=== PATIENT | male | born 1990 | race African-American/Black ===

== ENCOUNTER 2020-12-01 22:07 | Emergency (ER) | payer OTHER, SELFPAY ==
--- NOTE | ~2020-12-01 | XR_ITS ---
EXAMINATION: XR chest 2V DATE: 12/02/2020 01:47 INDICATION: Left sternal chest pain TECHNIQUE: PA and lateral views of the chest were obtained. COMPARISON: None FINDINGS: The lungs are clear with no focal airspace opacities, pulmonary edema, pleural effusion or pneumothor ax. The cardiomediastinal silhouette is normal. Minimal S-shaped curvature of the thoracic spine. IMPRESSION: 1. No acute cardiopulmonary disease. Reviewed, dictated and finalized at location A.
[2020-12-01 22:32] VITALS: BP 148/86; PULSE 92; RESP 16; TEMP 36.9; O2SAT 99
--- NOTE | 2020-12-02 01:19 | ED.GENADULT ---
HPI - General Adult General Chief complaint: Skin/Abscess/Foreign Body Stated complaint: red rash, itching - SCABIES? Time Seen by Provider: 12/02/20 01:18 Source: patient Mode of arrival: ambulatory Limitations: no limitations History of Present Illness HPI narrative: Patient is a 30-year-old male with a history of sleep apnea who presents for evaluation of left-sided chest pain as well as itching rash and hives which has resolved at the time of assessment. Patient states that over the past week he intermittently has been experiencing chest pain over the left side of his chest. The last time that the pain occurred was around 8 PM and has lasted over the past 4 hours. Patient without associated palpitations, jaw pain, neck pain, shoulder pain, back pain. No ripping or tearing sensation to the flanks. No associated shortness of breath or diaphoresis. Patient states that today he has had hives to his thorax, abdomen, upper extremities which have been itching him. He did take a Benadryl and Pepcid which made the rash resolved while he was in the waiting room. He denies any difficulty breathing or speaking. No wheezing, diarrhea. No history of anaphylaxis or severe allergic reactions in the past. No recent soaps, lotions or detergents. Patient recently moved to this area from [place], does have a house But denies other new pets or exposures. Patient states he believes all of his symptoms started after getting his haircut. States he initially had a rash near his hairline that is since resolved. No vesicles or blisters. Related Data Allergies Allergy/AdvReac Type Severity Reaction Status Date / Time No Known Allergies Allergy Unverified 07/21/11 20:33 Review of Systems Review of Systems: CONSTITUTIONAL: Denies fever, chills, or sweats. EYES: Denies visual changes, redness, or discharge. ENT: Denies rhinorrhea, congestion, sore throat, or otalgia. CARDIOVASCULAR: Reports chest pain without palpitations or edema RESPIRATORY: Denies cough or dyspnea. GASTROINTESTINAL: Denies abdominal pain, nausea, vomiting, or diarrhea. GENITOURINARY: Denies dysuria or hematuria. SKIN: Reports rash and itching that has since resolved MUSCULOSKELETAL: Denies back pain, joint pain, or myalgia. NEUROLOGIC: Denies headache, numbness, or weakness. [facility] Social History Social History (Updated 12/02/20 @ 01:47 by Clementine Avendano MD) Smoking status: Never smoker Alcohol intake: never Substance use: never Living arrangements: with friend(s) Gender identity (if verbalized by the patient): Male Exam Narrative: GENERAL: Awake, alert, conversant HEAD: Normocephalic, atraumatic. EYES: PERRLA and EOMI. ENT: Nares clear, no rhinorrhea or epistaxis. Mucous membranes moist. NECK: Supple. CHEST: No respiratory distress, breathing even and non labored, no chest wall tenderness HEART: Regular rate, sinus rhythm ABDOMEN:Non distended, non tender EXTREMITIES: Normal range of motion. No edema. SKIN: Warm, dry, no rash. No urticaria. No vesicles or blisters. No areas of erythema, no scaling or plaque-like lesions. NEURO:No focal deficits. Alert and oriented x3 Course Vital Signs Vital signs: Vital Signs Temperature 36.9 C 12/01/20 22:32 Pulse Rate 92 12/01/20 22:32 Respiratory Rate 16 12/01/20 22:32 Blood Pressure 148/86 H 12/01/20 22:32 Pulse Oximetry 99 12/01/20 22:32 Temperature 36.9 C 12/01/20 22:32 Pulse Rate 77 12/02/20 03:46 Respiratory Rate 18 12/02/20 03:46 Blood Pressure 152/103 H 12/02/20 03:46 Pulse Oximetry 96 12/02/20 03:46 Medical Decision Making MDM Narrative Medical decision making narrative: Patient initially presenting for evaluation of possible allergic reaction, with itching rash that has resolved at the time of my assessment as well as left-sided chest pain. At the time of initial assessment, EKG was some nonspecific ST segment findings. Initial troponin is undetected. Pain gordon
--- NOTE | 2020-12-02 01:37 | ECG_ITS ---
Measurements Intervals [place] Rate: 71 P: 31 [place]: 191 QRS: 22 QRSD: 90 T: -1 QT: 407 QTc: 444 Interpretive Statements SINUS RHYTHM BORDERLINE ST-T WAVE ABNORMALITY- ANT/INF LEADS BASELINE ARTIFACT- I, II, III, AVR, AVL, AVF, V1-V6 BORDERLINE ECG Electronically Signed On 12-02-2020 6:56:48 CDT by Gary Palma D.O.
[2020-12-02 01:59] VITALS: BP 133/83; PULSE 72; RESP 17; O2SAT 100
[2020-12-02] MEDS: ASPIRIN 81 MG CHEWABLE TABLET 324 MG PO (02:04)
[2020-12-02 02:18] LABS: Basophils Percent Auto 0.3 % (0.2-1.2); Eosinophils Absolute Auto 0.1 K/mm3 (0-0.3); Eosinophils Percent Auto 1.9 % (0-4.4); Hematocrit 38.7 % (42.0-52.0); Immature Granulocyte Absolute 0.01 K/mm3 (0.00-0.031); Immature Granulocyte Percent A 0.3 % (0-0.5); Lymphocytes Absolute Auto 0.94 K/mm3 (0.9-3.2); Lymphocytes Percent Auto 30.2 % (18.3-44.2); Mean Corpuscular HGB Conc 33.6 g/dl (32-36); Mean Corpuscular Hemoglobin 30.2 pg (26-34); Mean Platelet Volume 10.6 fl (7.4-10.4); Monocytes Absolute Auto 0.4 K/mm3 (0.1-0.6); Monocytes Percent Auto 12.9 % (2.6-8.5); Neutrophils Absolute Auto 1.7 K/mm3 (1.3-6.7); Neutrophils Percent Auto 54.4 % (45.5-73.1); Platelet Count Result 267 k/mm3 (150-375); Red Cell Distribution Width 13.6 % (11.5-14.5); White Blood Count 3.1 K/mm3 (4.5-10.0)
[2020-12-02] MEDS: diphenhydrAMINE HCl INJ 50 MG/ML VIAL 25 MG IV PUSH (02:22)
[2020-12-02] MEDS: DEXAMETHASONE SOD PHOS INJ 4 MG/ML VIAL 10 MG IV PUSH (02:23)
[2020-12-02] MEDS: FAMOTIDINE 20 MG/2 ML VIAL IV PUSH (02:23)
[2020-12-02 02:29] LABS: Anion Gap 11 mmol/L (8-16); Blood Urea Nitrogen 19 mg/dL (9-20); Calcium 9.2 mg/dL (8.4-10.2); Carbon Dioxide 26 mmol/L (22-30); Chloride 105 mmol/L (98-107); Estimated CRCL calculation 113 ml/min; Estimated Glomerular Filt Rate > 60; Glucose 104 mg/dL (65-110); Potassium 3.6 mmol/L (3.4-5.0); Sodium 142 mmol/L (137-145)
[2020-12-02 02:39] LABS: INR 1.1; Prothrombin Time 13.7 Seconds (11.1-14.7)
[2020-12-02 02:40] LABS: Partial Thromboplastin Time 34.7 SECONDS (22.3-36.8)
[2020-12-02 02:41] LABS: Troponin I < 0.012 ng/mL (0.000-0.034)
[2020-12-02 03:46] VITALS: BP 152/103; PULSE 77; RESP 18; O2SAT 96
[2020-12-02 04:55] LABS: Troponin I < 0.012 ng/mL (0.000-0.034)
[2020-12-02 05:15] VITALS: BP 116/84; PULSE 81; RESP 17; O2SAT 99
== END 2020-12-02 05:19 | disposition home or self-care (01) ==
PROVIDERS: Emergency Provider Emergency Medicine
DX: L50.9 Urticaria, unspecified (principal); R07.89 Other chest pain
CPT/HCPCS: 36415; 71046; 80048; 84484; 85025; 85610; 85730; 93005; 96374; 96375; 99284; A9270; J1100; J1200

== ENCOUNTER 2021-02-24 05:57 | Emergency (ER) | payer OTHER, SELFPAY ==
--- NOTE | ~2021-02-24 | XR_ITS ---
EXAMINATION: XR chest 2V DATE: 02/24/2021 08:22 INDICATION: Cough. TECHNIQUE: Frontal and lateral views of the chest were obtained. COMPARISON: Chest 2 views 12/02/2020 FINDINGS: The chest demonstrates clear lungs without pneumonia, pleural effusion, or pneumothorax. Th e heart size is normal. IMPRESSION: 1. No acute cardiopulmonary disease. Reviewed, dictated and finalized at location A. [employer]
[2021-02-24 06:11] VITALS: BP 147/88; PULSE 77; RESP 18; TEMP 36.4; O2SAT 100
[2021-02-24] MEDS: IPRATROPIUM BR 0.02% INH SOLN 0.5 MG/2.5 ML VIAL INHALATION (07:55)
[2021-02-24] MEDS: ALBUTEROL SULFATE NEB 2.5 MG/0.5 ML INH 5 MG INHALATION (07:55)
--- NOTE | 2021-02-24 08:14 | ED.URI ---
HPI - URI/Sore Throat General Chief Complaint: Upper Respiratory Infection Stated Complaint: cough, breathing issues Time Seen by Provider: 02/24/21 07:35 Source: patient History of Present Illness HPI Narrative: Patient presents with cough for approximately 3 weeks. Reports he thought was related to his she now is cough has persisted so he came to the ER for evaluation. Reports family history of asthma did not have any known lung disorders. Reports mild congestion and sore throat. Denies fevers. Reports symptoms of cough and spit stuff up. Denies any nausea or diarrhea denies known sick contacts. Reports he took a Covid test 2 days ago and it was negative. He denies any chest pain Related Data Allergies Allergy/AdvReac Type Severity Reaction Status Date / Time No Known Allergies Allergy Unverified 02/24/21 06:17 Review of Systems Review of Systems: CONSTITUTIONAL: Denies fever, chills, or sweats. EYES: Denies visual changes, redness, or discharge. ENT: Denies rhinorrhea, congestion, sore throat, or otalgia. CARDIOVASCULAR: Denies chest pain, palpitations, or edema. RESPIRATORY: Denies cough or dyspnea. GASTROINTESTINAL: Denies abdominal pain, nausea, vomiting, or diarrhea. GENITOURINARY: Denies dysuria or hematuria. SKIN: Denies rash or itching. MUSCULOSKELETAL: Denies back pain, joint pain, or myalgia. NEUROLOGIC: Denies headache, numbness, dizziness, or weakness. PSYCHIATRIC: Denies anxiety or depression. All systems reviewed & are unremarkable except as noted in HPI and below PMFSH Past Medical History Medical History (Updated 02/24/21 @ 08:29 by Angel Turner MD) Sleep apnea Social History Social History (Updated 12/02/20 @ 01:47 by Clementine Avendano MD) Smoking status: Never smoker Alcohol intake: never Substance use: never Gender identity (if verbalized by the patient): Male Exam Narrative: GENERAL: Well-appearing, well-nourished, and in no acute distress. HEAD: Normocephalic, atraumatic. EYES: PERRLA and EOMI. ENT: Nares clear, no rhinorrhea or epistaxis. Mucous membranes moist. NECK: Supple. No masses. No JVD CHEST: Clear to auscultation. No respiratory distress. No wheezes rales or rhonchi HEART: Regular rate and rhythm. No murmur heard. Normal peripheral pulses. ABDOMEN: Soft, nontender, nondistended, normal active bowel sounds. EXTREMITIES: Normal range of motion. No edema. SKIN: Warm, dry, no rash. NEURO: No focal deficits. Alert and oriented x3. PSYCH: Normal mood and affect. Course Reevaluation(s) Reevaluation #1: Patient reports feeling improved results and plan reviewed with patient patient comfortable with outpatient plan. Date: 02/24/21 Time: 08:24 Vital Signs Vital signs: Vital Signs Temperature 36.4 C 02/24/21 06:11 Pulse Rate 77 02/24/21 06:11 Respiratory Rate 18 02/24/21 06:11 Blood Pressure 147/88 H 02/24/21 06:11 Pulse Oximetry 100 02/24/21 06:11 Temperature 36.4 C 02/24/21 06:11 Pulse Rate 68 02/24/21 08:58 Respiratory Rate 12 02/24/21 08:58 Blood Pressure 130/88 02/24/21 08:58 Pulse Oximetry 100 02/24/21 08:58 MDM - URI/Sore Throat MDM Narrative Medical decision making narrative: H&P as above, vss, pt looks clinically well, exam with clear lungs, imaging without acute process, additional labs/img considered, symptomatic relief available as needed, on reevaluation pt continues to looks clinically well. Suspect URI versus bronchitis, dns pneumonia, severe sepsis, severe dehydration. plan to tx/monitor as op w/ pcm f/u findings/plan discussed with pt, pt agree/comfortable with plan, return precautions given Imaging Data Attestation: I personally reviewed and interpreted this imaging study as follows: My impression: No acute process on chest x-ray ECG Data EKG #1: Attestation: I personally reviewed and interpreted this ECG as follows: ECG completion date: 02/24/21 ECG completion time: 08:14 Inte
--- NOTE | 2021-02-24 08:27 | ECG_ITS ---
Measurements Intervals [place] Rate: 63 P: 32 [place]: 194 QRS: 8 QRSD: 89 T: -9 QT: 424 QTc: 434 Interpretive Statements SINUS RHYTHM VOLTAGE CRITERIA FOR LVH ST ELEVATION IN ANTEROLAT/HIGH LAT LEADS- PROBABLY EARLY REPOLARIZATION ABNORMALITY BORDERLINE ST-T WAVE ABNORMALITY- ANT/INF LEADS BORDERLINE ECG Electronically Signed On 02-24-2021 8:43:16 [employer]GRAMMER by Gary Palma D.O.
[2021-02-24 08:58] VITALS: BP 130/88; PULSE 68; RESP 12; O2SAT 100
== END 2021-02-24 08:59 | disposition home or self-care (01) ==
PROVIDERS: Emergency Provider Emergency Medicine
DX: J40 Bronchitis, not specified as acute or chronic (principal)
CPT/HCPCS: 71046; 93005; 94640; 99283

== ENCOUNTER 2021-04-15 08:20 | Emergency (ER) | payer OTHER, SELFPAY ==
[2021-04-15 08:29] VITALS: BP 138/82; PULSE 81; RESP 16; TEMP 37.3; O2SAT 99
--- NOTE | 2021-04-15 08:30 | ED.URI ---
HPI - URI/Sore Throat General Chief Complaint: Abdominal Pain Stated Complaint: Cough,Stomach Pain Time Seen by Provider: 04/15/21 08:30 Source: patient, family, RN notes reviewed and old records reviewed Mode of arrival: ambulatory Limitations: no limitations History of Present Illness HPI Narrative: 30-year-old male presents to the [facility] with cough and stomach pain. Patient reports the cough has been going on for several months. States he has been seen for it 2 times before. States he has been prescribed steroids and inhaler but did not follow-up with a primary care provider. recently moved from [place]. Uses a CPAP at night but has not changed out his tubing or mask, states he cleans it daily. Also states he has had generalized abdominal pain worse epigastric/ periumbilical. Denies chest pain or fevers. States he has had diarrhea. Reports the abdominal pain has been going on for approximately 1 week but this morning the pain woke him up from his sleep. Describes it as a pulling sharp pain. MD elicited complaint: cough Related Data Home Medications Medication Instructions Recorded Confirmed No Home Medications 04/15/21 04/15/21 Allergies Allergy/AdvReac Type Severity Reaction Status Date / Time No Known Allergies Allergy Verified 04/15/21 08:43 Review of Systems Review of Systems: All systems reviewed & are unremarkable except as noted in HPI and below Constitutional: Constitutional: Reports no additional constitutional complaints, Denies chills, Denies fever(s) and Denies headache(s) Eyes: Eyes: Reports no additional eye complaints ENT: Reports system reviewed and no additional complaints, except as documented, Denies vertigo, Denies dizziness, Denies headache(s), Denies nasal congestion and Denies sore throat Cardiovascular: Cardiovascular: Reports no additional cardiovascular complaints, Denies chest pain, Denies syncope, Denies rapid heart rate and Denies dyspnea Respiratory: Respiratory: Reports as per HPI, Reports cough (months), Denies dyspnea and Denies wheezing Gastrointestinal: Gastrointestinal: Reports as per HPI, Reports abdominal pain, Denies diarrhea, Denies nausea and Denies vomiting Musculoskeletal: Musculoskeletal: Reports no additional musculoskeletal complaints and Denies numbness Integumentary/Breasts: Skin/Breast: Reports system reviewed and no additional complaints, except as docu Neurologic: Reports system reviewed and no additional complaints, except as documented, Denies vertigo, Denies dizziness, Denies syncope, Denies headache(s), Denies focal weakness and Denies numbness Psychiatric: Psychiatric: Reports no additional psychiatric complaints Allergic/Immunologic: Allergic/Immunologic: Reports no additional allergic/immunologic complaints and Denies wheezing PMFSH Past Medical History Medical History (Updated 04/15/21 @ 08:43 by Jaquelin Martínez) Sleep apnea Social History Social History Smoking status: Never smoker Alcohol intake: never Substance use: never Gender identity (if verbalized by the patient): Male Comments At the time of my signature, I reviewed and agree with the nursing past medical, surgical, social, and family history. There is no relevant family history pertinent to the patient complaint. Exam Const: General: cooperative, healthy appearing, no acute distress, well developed and alert Nutritional Appearance: well nourished Orientation/consciousness: patient oriented x3 Limitations: no limitations HENMT: Head: normal to inspection Ears: external ears normal Eyes: Conjunctivae: conjunctivae normal Pupils: Equal, round and reactive pupils present Neck: Neck: normal visual inspection, no lymphadenopathy and no meningeal signs Chest: Chest palpation & inspection: normal inspection of the chest Resp: Effort & Inspection: normal respiratory effort and no use of accessory muscles Auscultation: c
== END 2021-04-15 08:55 | disposition short-term general hospital (02) ==
PROVIDERS: Emergency Provider Nurse Practitioner
DX: R10.84 Generalized abdominal pain (principal); R05.9 Cough, unspecified; G47.30 Sleep apnea, unspecified
CPT/HCPCS: 99212; G0463

== ENCOUNTER 2021-04-15 09:06 | Emergency (ER) | payer OTHER, SELFPAY ==
[2021-04-15 09:12] VITALS: BP 110/71; PULSE 81; RESP 16; TEMP 36.4; O2SAT 100
--- NOTE | 2021-04-15 11:06 | PC.NURSE ---
pt ambulatory out ED Door. called name to go back to room and no answer.
== END 2021-04-15 11:06 | disposition left against medical advice (07) ==
DX: R19.7 Diarrhea, unspecified (principal)
CPT/HCPCS: 99199

== ENCOUNTER 2021-06-30 14:51 | Emergency (ER) | payer OTHER, SELFPAY ==
[2021-06-30 15:00] VITALS: BP 135/90; PULSE 90; RESP 16; TEMP 37.4; O2SAT 98
--- NOTE | 2021-06-30 15:01 | ED.SOB ---
HPI - SOB/Dyspnea General Chief Complaint: Upper Respiratory Infection Stated Complaint: sob Time Seen by Provider: 06/30/21 15:07 Source: patient Mode of arrival: ambulatory Limitations: no limitations History of Present Illness HPI Narrative: Mr. Emerson is a 31-year-old male patient presenting to the clinic today with complaints of shortness of breath and cough x2 weeks or more. He is not currently bringing up anything but he states that he coughs so hard that he vomits. Reports that he woke up this morning from a coughing spell. Denies any fever or chills but states it is hard to take a deep breath because it causes him to cough. States he was diagnosed with sleep apnea in [place] and they thought that was causing his cough. SPO2 is currently 98% on room air. Is breathing more shallow to avoid coughing. Also reports that his throat hurts from coughing. No history of asthma or COPD. Denies ever being a smoker but he reports that he is around a lot of secondhand smoke since being back in [place]. Last used his albuterol inhaler this morning around 8 AM MD elicited complaint: shortness of breath and cough Related Data Allergies Allergy/AdvReac Type Severity Reaction Status Date / Time No Known Allergies Allergy Verified 04/15/21 08:43 Review of Systems Review of Systems: Pertinent positives per HPI. Patient denies any fever, chills, rash, headache, visual changes, dizziness, runny nose, sore throat, chest pain, palpitations, nausea, vomiting, diarrhea, constipation, abdominal pain, or any urinary issues. PMFSH Past Medical History Medical History Sleep apnea Social History Social History Smoking status: Never smoker Alcohol intake: never Substance use: never Gender identity (if verbalized by the patient): Male Comments At the time of my signature, I reviewed and agree with the nursing past medical, surgical, social, and family history. There is no relevant family history pertinent to the patient complaint. Exam Narrative: General: Well-developed, overweight, in mild to moderate distress when coughing Head: Normocephalic, atraumatic Eyes: Pupils equally round and reactive to light bilaterally, EOM intact, sclera and conjunctive clear, no discharge, lids normal Ears: TMs intact and clear, ear canals ceruminous, no drainage, grossly hearing normal. Nose: Nares patent, no discharge, no inflammation, no sinus tenderness. Mouth: Oropharynx without lesions or masses, good dentition, MMM. Neck: Supple, trachea midline, no enlargement of anterior or posterior cervical nodes, no thyroid masses or goiter palpable. Cardio: Regular rate and rhythm, s1 and s2 normal, no murmur appreciated. Resp: Lung sounds tight with bronchospasms, no rhonchi, rales, wheezing or rubs Course Course Emergency Course: Portions of this record may have been created with voice recognition software. Level of Care: Express Care Visit Vital Signs Vital signs: Vital Signs Temperature 37.4 C 06/30/21 15:00 Pulse Rate 90 06/30/21 15:00 Respiratory Rate 16 06/30/21 15:00 Blood Pressure 135/90 06/30/21 15:00 Pulse Oximetry 98 06/30/21 15:00 Temperature 37.4 C 06/30/21 15:00 Pulse Rate 90 06/30/21 15:00 Respiratory Rate 16 06/30/21 15:00 Blood Pressure 135/90 06/30/21 15:00 Pulse Oximetry 98 06/30/21 15:00 Vital signs reviewed MDM - SOB/Dyspnea MDM Narrative Medical decision making narrative: At the time of visit patient is resting on the exam table. He is having bronchospasms while trying to take deep breaths during assessment. He denies any fever or chills. Lung sounds are tight with bronchospasms while trying to take a deep breath. DuoNeb treatment given in the clinic today. I suspect reactive airway disease with acute bronchospasm. We will send a prescription in for
[2021-06-30] MEDS: IPRATROPIUM BR 0.02% INH SOLN 0.5 MG/2.5 ML VIAL INHALATION (15:17)
[2021-06-30] MEDS: ALBUTEROL SULFATE NEB 2.5 MG/3 ML INH INHALATION (15:17)
== END 2021-06-30 15:38 | disposition home or self-care (01) ==
PROVIDERS: Emergency Provider Nurse Practitioner Family
DX: J45.21 Mild intermittent asthma with (acute) exacerbation (principal); G47.30 Sleep apnea, unspecified
CPT/HCPCS: 94640; 99213; G0463

== ENCOUNTER 2021-12-20 12:08 | Emergency (ER) | payer OTHER, SELFPAY ==
--- NOTE | ~2021-12-20 | XR_ITS ---
XR hand RT min 3V 12/20/2021 12:29 INDICATION: Right hand pain after recent fall PROCEDURE: Right hand pain COMPARISON: No prior studies for comparison. FINDINGS: Fracture, dislocation or subluxation is not identified. The soft tissues appear within norm al limits. No foreign bodies are identified. IMPRESSION: 1: NO ACUTE BONE OR JOINT ABNORMALITY IDENTIFIED. Reviewed, dictated and finalized at location A.
[2021-12-20 12:19] VITALS: BP 127/74; PULSE 69; RESP 16; TEMP 36.4; O2SAT 100
--- NOTE | 2021-12-20 13:18 | ED.UPPEXIN ---
HPI - Extremity Injury (Upper) General Chief Complaint: Extremity Injury, Upper Stated Complaint: Right Hand Pain Time Seen by Provider: 12/20/21 13:30 Source: patient and RN notes reviewed Mode of arrival: ambulatory Limitations: no limitations History of Present Illness HPI narrative: 31-year-old male presents to the [facility] with complaints of right hand pain. Patient states that he tripped and fell and landed on his hand. Bruising noted to the palmar aspect of his hand. No snuffbox tenderness. Strong core piler noted. MD complaint: injury to: right and hand Related Data Home Medications Medication Instructions Recorded Confirmed bictegravir 50 mg-emtricitabine tablet PO 12/20/21 200 mg-tenofovir alafenam 25 mg tablet (Biktarvy) fluticasone propionate 50 intranasal 12/20/21 mcg/actuation nasal spray,suspension metoprolol succinate 50 mg mg PO 12/20/21 tablet,extended release 24 hr sertraline 25 mg tablet mg 12/20/21 sulfamethoxazole 800 tablet 12/20/21 mg-trimethoprim 160 mg tablet Allergies Allergy/AdvReac Type Severity Reaction Status Date / Time No Known Allergies Allergy Verified 12/20/21 13:07 Review of Systems Review of Systems: All systems reviewed & are unremarkable except as noted in HPI and below Constitutional: Constitutional: Reports no additional constitutional complaints, Denies chills and Denies fever(s) Eyes: Eyes: Reports no additional eye complaints ENT: Reports system reviewed and no additional complaints, except as documented Cardiovascular: Cardiovascular: Reports no additional cardiovascular complaints Respiratory: Respiratory: Reports no additional respiratory complaints Gastrointestinal: Gastrointestinal: Reports no additional gastrointestinal complaints Musculoskeletal: Musculoskeletal: Reports as per HPI (Right hand pain) Integumentary/Breasts: Skin/Breast: Reports system reviewed and no additional complaints, except as docu Neurologic: Reports system reviewed and no additional complaints, except as documented Psychiatric: Psychiatric: Reports no additional psychiatric complaints Allergic/Immunologic: Allergic/Immunologic: Reports no additional allergic/immunologic complaints PMFSH Past Medical History Medical History Sleep apnea Social History Social History Smoking status: Never smoker Alcohol intake: never Substance use: never Gender identity (if verbalized by the patient): Male Comments At the time of my signature, I reviewed and agree with the nursing past medical, surgical, social, and family history. There is no relevant family history pertinent to the patient complaint. Exam Const: General: healthy appearing, no acute distress, alert and well nourished Nutritional Appearance: well nourished and obese Orientation/consciousness: patient oriented x3 Limitations: no limitations HENMT: Head: normal to inspection Ears: external ears normal Eyes: General: appearance normal, both eyes and all related structures Pupils: Equal, round and reactive pupils present Neck: Neck: normal visual inspection, no lymphadenopathy and no meningeal signs Chest: Chest palpation & inspection: normal inspection of the chest Resp: Effort & Inspection: normal respiratory effort and no use of accessory muscles Auscultation: clear to auscultation bilaterally, no crackles, no rales, no rhonchi and no wheezes Cardio: Rate: regular rate Rhythm: regular rhythm Back/Spine/Pelvis: Cervical Spine: normal cervical lordosis Thoracic/Lumbar Spine: thoracic and lumbar spine normal to inspection Skin: General skin exam: normal color Rashes: no rashes Wounds: no wounds Neuro: General: patient oriented x3, moves all extremities, no meningeal signs and no focal motor deficits Cranial nerves: Yes Equal, round and reactive pupils present Speech: ciarra
== END 2021-12-20 13:37 | disposition home or self-care (01) ==
PROVIDERS: Emergency Provider Nurse Practitioner
DX: S60.221A Contusion of right hand, initial encounter (principal); W01.0XXA Fall on same level from slipping, tripping and stumbling without subsequent striking against object, initial encounter; I10 Essential (primary) hypertension; Z21 Asymptomatic human immunodeficiency virus [HIV] infection status
CPT/HCPCS: 73130; 99213; G0463

== ENCOUNTER 2022-01-13 09:23 | Emergency (ER) | payer OTHER, SELFPAY ==
--- NOTE | ~2022-01-13 | XR_ITS ---
XR ankle LT min 3V 01/13/2022 09:50 Indication: Diffuse left ankle pain Procedure: 4 views left ankle Comparison: No prior studies for comparison. Findings: There is mild soft tissue swelling lateral to the ankle. No fracture or traumatic malalignm ent. Ankle mortise intact. No foreign bodies. Talar dome is unremarkable. Impression: 1: No acute fracture. Reviewed, dictated and finalized at location B. Impression: 1: No acute fracture.
[2022-01-13 09:38] VITALS: BP 131/78; PULSE 79; RESP 16; TEMP 36.4; O2SAT 99
--- NOTE | 2022-01-13 10:00 | ED.LOWEXIN ---
HPI - Extremity Injury (Lower) General Chief Complaint: Extremity Injury, Lower Stated Complaint: left ankle swelling/ pain Time Seen by Provider: 01/13/22 10:01 Source: patient and RN notes reviewed Mode of arrival: ambulatory Limitations: no limitations History of Present Illness HPI Narrative: 31-year-old male presents to the [facility] with complaints of left ankle pain and swelling for approximately 1 week. Patient reports that he was in [place] when he stepped off a curb incorrectly and rolled his ankle. States that was not feeling better so he came in today. Decreased range of motion secondary to pain and swelling. Positive pedal pulse. Capillary refill under 2 seconds. Related Data Home Medications Medication Instructions Recorded Confirmed bictegravir 50 mg-emtricitabine tablet PO 12/20/21 200 mg-tenofovir alafenam 25 mg tablet (Biktarvy) fluticasone propionate 50 intranasal 12/20/21 mcg/actuation nasal spray,suspension metoprolol succinate 50 mg mg PO 12/20/21 tablet,extended release 24 hr sertraline 25 mg tablet mg 12/20/21 sulfamethoxazole 800 tablet 12/20/21 mg-trimethoprim 160 mg tablet Allergies Allergy/AdvReac Type Severity Reaction Status Date / Time No Known Allergies Allergy Verified 01/13/22 09:56 Review of Systems Review of Systems: All systems reviewed & are unremarkable except as noted in HPI and below Constitutional: Constitutional: Reports no additional constitutional complaints, Denies chills and Denies fever(s) Eyes: Eyes: Reports no additional eye complaints ENT: Reports system reviewed and no additional complaints, except as documented Cardiovascular: Cardiovascular: Reports no additional cardiovascular complaints Respiratory: Respiratory: Reports no additional respiratory complaints Gastrointestinal: Gastrointestinal: Reports no additional gastrointestinal complaints Musculoskeletal: Musculoskeletal: Reports as per HPI, Reports arthralgias (Left ankle) and Reports joint swelling (Left ankle) Integumentary/Breasts: Skin/Breast: Reports system reviewed and no additional complaints, except as docu Neurologic: Reports system reviewed and no additional complaints, except as documented Psychiatric: Psychiatric: Reports no additional psychiatric complaints Allergic/Immunologic: Allergic/Immunologic: Reports no additional allergic/immunologic complaints PMFSH Past Medical History Medical History Sleep apnea Social History Social History (Reviewed 01/13/22 @ 10:11 by NEHAL Christopher Smoking status: Never smoker Alcohol intake: never Substance use: never Gender identity (if verbalized by the patient): Male Comments At the time of my signature, I reviewed and agree with the nursing past medical, surgical, social, and family history. There is no relevant family history pertinent to the patient complaint. Exam Const: General: healthy appearing, no acute distress, alert and well nourished Nutritional Appearance: well nourished Orientation/consciousness: patient oriented x3 Limitations: no limitations HENMT: Head: normal to inspection Ears: external ears normal Eyes: General: appearance normal, both eyes and all related structures Pupils: Equal, round and reactive pupils present Neck: Neck: normal visual inspection, no lymphadenopathy and no meningeal signs Chest: Chest palpation & inspection: normal inspection of the chest Resp: Effort & Inspection: normal respiratory effort and no use of accessory muscles Auscultation: clear to auscultation bilaterally, no crackles, no rales, no rhonchi and no wheezes Cardio: Rate: regular rate Rhythm: regular rhythm Skin: General skin exam: normal color Rashes: no rashes Wounds: no wounds Neuro: General: patient oriented x3, moves all extremities, no meningeal signs and no focal motor deficits Cranial nerves: Yes Equal, round and
== END 2022-01-13 10:20 | disposition home or self-care (01) ==
PROVIDERS: Emergency Provider Nurse Practitioner
DX: S93.402A Sprain of unspecified ligament of left ankle, initial encounter (principal); X50.9XXA Other and unspecified overexertion or strenuous movements or postures, initial encounter; G47.30 Sleep apnea, unspecified
CPT/HCPCS: 73610; 99213; G0463

== ENCOUNTER 2023-03-07 08:17 | Emergency (ER) | payer OTHER, SELFPAY ==
--- NOTE | 2023-03-07 08:29 | ED.URI ---
HPI - URI/Sore Throat General Chief Complaint: Upper Respiratory Infection Stated Complaint: Sinus Time Seen by Provider: 03/07/23 08:30 Source: patient and RN notes reviewed Mode of arrival: ambulatory Limitations: no limitations History of Present Illness HPI Narrative: 32-year-old male with a history of HIV presented for complaint of nasal congestion and cough for almost 2 weeks. Endorses cough is productive white sputum, with occasional rattling in chest. Has been taking TheraFlu and vitamin-C. Denies shortness of breath, chest pain, wheezing, nausea, vomiting, diarrhea, fevers or chills. He does endorse occasional night sweats, which she states may be related to his medical history. Reports pneumonia 2021. MD elicited complaint: cough Related Data Home Medications Medication Instructions Recorded Confirmed bictegravir 50 mg-emtricitabine tablet PO 03/07/23 03/07/23 200 mg-tenofovir alafenam 25 mg tablet (Biktarvy) darunavir ethanolate 800 mg tablet mg 03/07/23 (Prezista) emtricitabine 200 mg-tenofovir tablet 03/07/23 disoproxil fumarate 300 mg tablet ritonavir 100 mg tablet mg PO 03/07/23 Allergies Allergy/AdvReac Type Severity Reaction Status Date / Time No Known Allergies Allergy Verified 03/07/23 08:30 Review of Systems Review of Systems: CONSTITUTIONAL: Denies malaise, chills, fever EYES: Denies visual changes, redness, or discharge ENT: Reports rhinorrhea, congestion, denies otalgia, sore throat CARDIOVASCULAR: Denies chest pain, palpitations, edema RESPIRATORY: Reports cough, post nasal drainage. Denies dyspnea GASTROINTESTINAL: Denies abdominal pain, nausea, vomiting, diarrhea SKIN: Denies rash or itching MUSCULOSKELETAL: denies myalgia NEUROLOGIC: Denies headache PMFSH Past Medical History Medical History Sleep apnea Social History Social History Smoking status: Never smoker Alcohol intake: never Substance use: never Living arrangements: with friend(s) Gender identity (if verbalized by the patient): Male Exam Narrative: GENERAL: well-appearing, nontoxic no acute distress. HEAD: Normocephalic EYES: PERRLA, conjunctivae clear ENT: Mucous membranes moist. TM pearly reyes with dull light reflex bilaterally; no tragal tenderness. Oropharynx mildly erythematous without lesions or exudate, no drooling, no hoarseness, no trismus, uvula midline. CHEST: Clear to auscultation, breath sounds equal. No wheezing, rhonchi, rales, or stridor. No respiratory distress, speaks in full sentences. Frequent harsh [employer] income cough. HEART: Regular rate and rhythm. No murmur heard. SKIN: Warm, dry, no rash. NEURO: Alert and oriented x3. PSYCH: Normal mood and affect Course Course Emergency Course: Patient is aware of diagnosis, understands and agrees to treatment plan. Anticipatory guidance given. Patient agrees to follow-up as directed and is aware of reasons to seek care at the emergency department. Portions of this record may have been created with voice recognition software Level of Care: Express Care Visit Vital Signs Vital signs: reviewed MDM - URI/Sore Throat MDM Narrative Medical decision making narrative: Discussed physical exam findings. Advised supportive measures and signs/symptoms to go to the ER. Pt is appropriate for outpt treatment and f/u. Differential Diagnosis Differential diagnosis: Likely upper respiratory infection, otitis media, sinusitis, viral infection, bronchitis, influenza and pharyngitis Discharge Plan Discharge Clinical Impression: Upper respiratory infection Patient Disposition: Home, Self-Care Condition: Stable Instructions: Antibiotic Form, Upper Respiratory Infection (ED) Additional Instructions: Take antibiotic as directed Recommend Flonase spray and Zyrtec (or Claritin/Deisy) over the counter Cough syrup
[2023-03-07 08:30] VITALS: BP 131/82; PULSE 72; RESP 16; TEMP 36.4; O2SAT 99
[2023-03-07 08:31] VITALS: BP 131/82; PULSE 72; RESP 16; TEMP 36.4; O2SAT 99
== END 2023-03-07 08:48 | disposition home or self-care (01) ==
PROVIDERS: Emergency Provider Nurse Practitioner Family
DX: J06.9 Acute upper respiratory infection, unspecified (principal); B20 Human immunodeficiency virus [HIV] disease; Z79.899 Other long term (current) drug therapy
CPT/HCPCS: 99213; G0463

== ENCOUNTER 2023-05-02 08:37 | Emergency (ER) | payer OTHER, SELFPAY ==
[2023-05-02 09:03] VITALS: BP 133/84; PULSE 60; RESP 16; TEMP 36.3; O2SAT 99
--- NOTE | 2023-05-02 09:07 | ED.MALEGU ---
HPI - Male Genitourinary General Chief complaint: Urogenital-Male Stated complaint: STD Source: patient and RN notes reviewed Mode of arrival: ambulatory Limitations: no limitations History of Present Illness HPI Narrative: 32 y/o male with hx HIV presented for c/o left groin pain x2 days, and is requesting STD testing. Pain radiates to left testicle, pain was severe last night, woke him from sleep. Minimal pain at present. Has not taken anything for pain. States he recently lifted 3 cases of water at once about 5 days ago. Denies urethral discharge, dysuria, lesions, or testicular swelling. New sexual partner, protected intercourse. Related Data Home Medications Medication Instructions Recorded Confirmed bictegravir 50 mg-emtricitabine 1 tablet PO DAILY 03/07/23 05/02/23 200 mg-tenofovir alafenam 25 mg tablet (Biktarvy) darunavir 800 mg tablet (Prezista) 800 mg PO DAILY 03/07/23 05/02/23 emtricitabine 200 mg-tenofovir 1 tablet PO DAILY 03/07/23 05/02/23 disoproxil fumarate 300 mg tablet ritonavir 100 mg tablet 100 mg PO DAILY 03/07/23 05/02/23 Allergies Allergy/AdvReac Type Severity Reaction Status Date / Time No Known Allergies Allergy Verified 05/02/23 09:13 Review of Systems Review of Systems: CONSTITUTIONAL: Denies body aches, fever, chills, or sweats. CARDIOVASCULAR: Denies chest pain, palpitations, or edema. RESPIRATORY: Denies cough or dyspnea. GASTROINTESTINAL: Denies abdominal pain, nausea, vomiting, or diarrhea. GENITOURINARY: reports left inguinal/ testicular pain denies dysuria, frequency, urgency, hematuria, flank pain SKIN: Denies rash, itching, or wounds. MUSCULOSKELETAL: Denies back pain or myalgia. [facility] Past Medical History Medical History Sleep apnea Social History Social History Smoking status: Never smoker Alcohol intake: never Substance use: never Living arrangements: with friend(s) Gender identity (if verbalized by the patient): Male Comments At time of signature, I have reviewed and agree with nursing past medical, surgical, social and family history unless otherwise noted. Please see nursing chart for further information. There is no relevant family history pertinent to the presenting complaint Exam Narrative: GENERAL: Well-appearing ENT: Mucous membranes pink and moist. NECK: Normal AROM. Supple. CHEST: No respiratory distress. Clear to auscultation. HEART: Regular rate and rhythm. ABDOMEN: Left inguinal tenderness with palpation. no swelling. Soft, nondistended, normal active bowel sounds. No CVA tenderness MUSCULOSKELETAL: No bony tenderness. SKIN: Warm, dry, no rash. NEURO: No focal deficits. Alert and oriented x3. Gait steady. PSYCH: Normal affect. Course Course Emergency Course: Patient is aware of diagnosis, understands and agrees to treatment plan. Anticipatory guidance given. Patient agrees to follow-up as directed and is aware of reasons to seek care at the emergency department. Portions of this record may have been created with voice recognition software Level of Care: Express Care Visit Vital Signs Vital signs: Vital Signs Temperature 97.3 F L 05/02/23 09:03 Pulse Rate 60 05/02/23 09:03 Respiratory Rate 16 05/02/23 09:03 Blood Pressure 133/84 05/02/23 09:03 Pulse Oximetry 99 05/02/23 09:03 Oxygen Delivery Room Air 05/02/23 09:03 Temperature 97.3 F L 05/02/23 09:03 Pulse Rate 60 05/02/23 09:03 Respiratory Rate 16 05/02/23 09:03 Blood Pressure 133/84 05/02/23 09:03 Pulse Oximetry 99 05/02/23 09:03 Oxygen Delivery Room Air 05/02/23 09:05 Reviewed Transfer Transfered to: [facility] Transportation: Other ( Private vehicle) Transfer rationale: Pt is agreeable to transfer. Requests transfer to [facility] via private vehicle. R
[2023-05-02 21:46] LABS: Chlamydia trachomatis NOT DETECTED (NOT DETECTE); Neisseria gonorrhoeae PCR NOT DETECTED (NOT DETECTE)
== END 2023-05-02 09:30 | disposition short-term general hospital (02) ==
PROVIDERS: Emergency Provider Nurse Practitioner Family
DX: R10.32 Left lower quadrant pain (principal)
CPT/HCPCS: 87491; 87591; 99213; G0463

== ENCOUNTER 2023-07-11 18:49 | Emergency (ER) | payer OTHER, SELFPAY ==
[2023-07-11 18:57] VITALS: BP 129/79; PULSE 74; RESP 16; TEMP 36.2; O2SAT 99
[2023-07-11 18:58] VITALS: BP 129/79; PULSE 74; RESP 16; TEMP 36.2; O2SAT 99
--- NOTE | 2023-07-11 19:06 | ED.SKABFB ---
HPI - Skin/Abscess/Foreign Bdy General Chief complaint: Skin/Abscess/Foreign Body Stated complaint: Insect Bite Time Seen by Provider: 07/11/23 19:00 Source: patient Mode of arrival: ambulatory Limitations: no limitations History of Present Illness HPI narrative: Dyllan is a 33-year-old male patient presenting to the clinic today with complaints of possible spider bite to his right forearm. He reports over the weekend he was in [place] and thinks he may have been bit by a spider. Has 2 areas to the right forearm that is very itchy and blistered. Redness and swelling started this morning. He denies any fever or chills. Related Data Home Medications Medication Instructions Recorded Confirmed darunavir 800 mg tablet (Prezista) 800 mg PO DAILY 03/07/23 07/11/23 emtricitabine 200 mg-tenofovir 1 tablet PO DAILY 03/07/23 07/11/23 disoproxil fumarate 300 mg tablet ritonavir 100 mg tablet 100 mg PO DAILY 03/07/23 07/11/23 Allergies Allergy/AdvReac Type Severity Reaction Status Date / Time No Known Allergies Allergy Verified 05/02/23 09:13 Review of Systems Review of Systems: Pertinent positives per HPI. Patient denies any fever, chills, rash, headache, visual changes, dizziness, cough, runny nose, sore throat, shortness of breath, chest pain, palpitations, nausea, vomiting, diarrhea, constipation, abdominal pain, or any urinary issues. PMFSH Past Medical History Medical History Sleep apnea Social History Social History Smoking status: Never smoker Alcohol intake: never Substance use: never Living arrangements: with friend(s) Gender identity (if verbalized by the patient): Male Comments At the time of my signature, I reviewed and agree with the nursing past medical, surgical, social, and family history. There is no relevant family history pertinent to the patient complaint. Exam Narrative: General: Well-developed, well nourished, in no apparent distress Head: Normocephalic, atraumatic. Cardio: Regular rate and rhythm, s1 and s2 normal, no murmur appreciated. Resp: Clear to auscultation bilaterally, no rhonchi, rales, wheezing or rubs. Integumentary: [place], warm, and dry, to localized areas of induration, redness with swelling with blistered appearance that is itchy and painful to palpation, no drainage Course Course Emergency Course: Portions of this record may have been created with voice recognition software. Level of Care: Express Care Visit Vital Signs Vital signs: Vital Signs Temperature 36.2 C L 07/11/23 18:57 Pulse Rate 74 07/11/23 18:57 Respiratory Rate 16 07/11/23 18:57 Blood Pressure 129/79 07/11/23 18:57 Pulse Oximetry 99 07/11/23 18:57 Oxygen Delivery Room Air 07/11/23 18:57 Temperature 36.2 C L 07/11/23 18:58 Pulse Rate 74 07/11/23 18:58 Respiratory Rate 16 07/11/23 18:58 Blood Pressure 129/79 07/11/23 18:58 Pulse Oximetry 99 07/11/23 18:58 Oxygen Delivery Room Air 07/11/23 18:58 Vital signs reviewed MDM - Skin/Abscess/Foreign Bdy MDM Narrative Medical decision making narrative: At the time of visit patient is resting comfortably on the exam table. Patient appears to be nontoxic. Plan: I suspect patient has an insect bite likely infected. Prescription for doxycycline and triamcinolone cream was sent to the pharmacy. Supportive measures were discussed with the patient and they voiced understanding discharge instructions and agrees to treatment plan. Return precautions reviewed Differential Diagnosis Differential diagnosis: Likely abscess of skin or subcutaneous tissue, viral exanthem, dermatophytosis, herpes zoster, allergic reaction to drug, cellulitis, eczema, insect bites, impetigo and contact dermatitis Discharge Plan Discharge Clinical Impression: Insect bite Patient Disposition: [facility]
== END 2023-07-11 19:11 | disposition home or self-care (01) ==
PROVIDERS: Emergency Provider Nurse Practitioner Family
DX: S50.861A Insect bite (nonvenomous) of right forearm, initial encounter (principal); W57.XXXA Bitten or stung by nonvenomous insect and other nonvenomous arthropods, initial encounter
CPT/HCPCS: 99213; G0463